=== PATIENT | male | born 1985 | race Hispanic/Latino ===

== ENCOUNTER 2019-08-07 20:22 | Emergency (ER) | payer SELFPAY ==
[~2019-08-07] VITALS: Ht 167.6 cm; Wt 75.0 kg
[2019-08-07] MEDS ORDERED: GENTAMICIN SULF5 ML OS (20:42)
[2019-08-07 20:50] VITALS: BP 134/74
== END 2019-08-07 20:50 | disposition home or self-care (01) | DRG 125 ==
LOC: ED 20:22 → EDBD 20:45 → ED 20:50
DX: S05.02XA Injury of conjunctiva and corneal abrasion without foreign body, left eye, initial encounter (principal); X58.XXXA Exposure to other specified factors, initial encounter